=== PATIENT | male | born 1975 | race African-American/Black ===

== ENCOUNTER 2018-04-08 14:24 | Emergency (ER) | payer BC, OTHER ==
--- NOTE | 2018-04-08 14:39 | PDOC ---
Rapid Medical Evaluation Chief Complaint: Pain, Acute Time Seen by Provider: 04/08/18 14:31 Medical Evaluation: Allergies Allergy/AdvReac Type Severity Reaction Status Date / Time No Known Allergies Allergy Verified 09/30/16 19:34 Vital Signs Temp Pulse Resp BP Pulse Ox 97.9 F 97 H 18 147/95 99 04/08/18 14:31 04/08/18 14:31 04/08/18 14:31 04/08/18 14:31 04/08/18 14:31 04/08/18 14:37 I have performed a brief in-person evaluation of this patient. The patient presents with a chief complaint of: L knee injury today, unable to bear weight Pertinent physical exam findings:Pain w/ ROM, no swelling or deformity I have ordered the following:knee xray The patient will proceed to the ED for further evaluation. Discharge Disposition - Diagnosis Knee sprain Qualifiers: Encounter type: initial encounter Involved ligament of knee: unspecified ligament Laterality: left Qualified Code(s): S83.92XA - Sprain of unspecified site of left knee, initial encounter - Referrals - Patient Instructions - Post Discharge Activity
[2018-04-08 14:42] VITALS: BP 147/95; PULSE 97; TEMP 97.9; BMI 28.0
[2018-04-08] MEDS ORDERED: IBUPROFEN 400 MG TABLET (FP) PO ONE ×2 (14:42→14:53)
--- NOTE | 2018-04-08 14:44 | PDOC ---
History of Present Illness - General Chief Complaint: Pain, Acute Stated Complaint: LEG PAIN Time Seen by Provider: 04/08/18 14:31 History Source: Patient Exam Limitations: No Limitations - History of Present Illness Initial Comments: 04/08/18 14:43 42 yr male tripped and fell this AM landed on left knee. pain to left knee Past History - Past Medical History Allergies/Adverse Reactions: Allergies Allergy/AdvReac Type Severity Reaction Status Date / Time No Known Allergies Allergy Verified 09/30/16 19:34 Home Medications: Ambulatory Orders NK [No Known Home Medication] 04/08/18 HTN: Yes - Suicide/Smoking/Psychosocial Hx Smoking History: Never smoked Hx Alcohol Use: No Drug/Substance Use Hx: No Review of Systems - Review of Systems Able to Perform ROS?: Yes Is the patient limited Guatemalan proficient: No Constitutional: No: Symptoms Reported HEENTM: No: Symptoms Reported Respiratory: No: Symptoms reported Cardiac (ROS): No: Symptoms Reported ABD/GI: No: Symptoms Reported : No: Symptoms Reported Musculoskeletal: Yes: Symptoms Reported *Physical Exam - Vital Signs Last Vital Signs Temp Pulse Resp BP Pulse Ox 97.9 F 97 H 18 147/95 99 04/08/18 14:31 04/08/18 14:31 04/08/18 14:31 04/08/18 14:31 04/08/18 14:31 - Physical Exam General Appearance: Yes: Nourished, Appropriately Dressed HEENT: positive: EOMI, SULAIMAN Extremity: positive: Normal Capillary Refill, Tender (left knee swelling to the left lateral knee noted ) Integumentary: positive: Normal Color, Dry, Warm Neurologic: positive: 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 NML intact, Fully Oriented, Alert, Normal Mood/ Affect, Normal Response, Motor Strength 5/5 ED Treatment Course - RADIOLOGY Radiology Studies Ordered: Category Date Time Status KNEE 3 POS-LEFT [RAD] Stat Radiology 04/08/18 14:42 Ordered Medical Decision Making - Medical Decision Making 04/08/18 14:43 cc: left knee injury will get xray and motrin knee immobilizer will be placed motrin and ice pack 04/08/18 15:29 *DC/Admit/Observation/Transfer Diagnosis at time of Disposition: Knee sprain Qualifiers: Encounter type: initial encounter Involved ligament of knee: unspecified ligament Laterality: left Qualified Code(s): S83.92XA - Sprain of unspecified site of left knee, initial encounter - Discharge Dispostion Disposition: HOME Condition at time of disposition: Good - Referrals Referrals: Serafin Bautista MD [Staff Physician] - - Patient Instructions Additional Instructions: elevate and apply ice every 2 hrs for 20 minutes for the next 2 days take ibuprofen 600mg every 8 hrs for pain as needed use the knee splint while awake remove to sleep and bathe follow with the orthopedist Dr. Bautista or if symptoms worsen or persist beyond 3-4 days - Post Discharge Activity
== END 2018-04-08 16:01 | disposition home or self-care (01) ==
LOC: JERFT 14:24
DX: S83.92XA Sprain of unspecified site of left knee, initial encounter (principal); W18.39XA Other fall on same level, initial encounter; Y93.89 Activity, other specified; Y92.9 Unspecified place or not applicable
CPT/HCPCS: 73560-TC-LT-FY; 99281-25

== ENCOUNTER 2019-01-23 11:46 | Emergency (ER) | payer BC ==
[2019-01-23 11:51] VITALS: BP 138/80; PULSE 83; TEMP 98.1; BMI 28.3
--- NOTE | 2019-01-23 12:31 | PDOC ---
History of Present Illness - General Chief Complaint: Chronic pain Stated Complaint: LF KNEE PAIN Time Seen by Provider: 01/23/19 11:57 History Source: Patient Exam Limitations: No Limitations - History of Present Illness Initial Comments: 01/23/19 12:37 Patient states he sprained his knee last year with a twisting injury, was told he had (?)meniscus injury . Is in exercise or activity but feels may be with heavy dog climbing on top of his leg or extension injury which re-exacerbated his left knee swelling and pain. Denies numbness or tingling to foot, no other injury. 01/23/19 19:13 Occurred: reports: yesterday Severity: reports: mild Pain Location: reports: lower extremity Modifying Factors: worse with: cold therapy, pain medication (left knee) Associated Symptoms (Fall): denies symptoms Past History - Travel Traveled outside of the country in the last 30 days: No Close contact w/someone who was outside of country & ill: No - Past Medical History Allergies/Adverse Reactions: Allergies Allergy/AdvReac Type Severity Reaction Status Date / Time shellfish derived Allergy Verified 01/23/19 11:49 Home Medications: Ambulatory Orders Naproxen [Naprosyn -] 500 mg PO BID #30 tablet 01/23/19 HTN: Yes - Suicide/Smoking/Psychosocial Hx Smoking History: Smoker current status UNK Hx Alcohol Use: No Drug/Substance Use Hx: No Review of Systems - Review of Systems Able to Perform ROS?: Yes Is the patient limited Burmese proficient: Yes Constitutional: Yes: See HPI. No: Symptoms Reported, Malaise HEENTM: No: Symptoms Reported Respiratory: No: Symptoms reported Musculoskeletal: Yes: Symptoms Reported, See HPI, Back Pain, Joint Pain, Joint Swelling (left knee- ) All Other Systems: Reviewed and Negative *Physical Exam - Vital Signs Last Vital Signs Temp Pulse Resp BP Pulse Ox 98.1 F 83 16 138/80 99 01/23/19 11:49 01/23/19 11:49 01/23/19 11:49 01/23/19 11:49 01/23/19 11:49 - Physical Exam General Appearance: Yes: Nourished, Appropriately Dressed, Apparent Distress, Mild Distress HEENT: positive: SULAIMAN, Normal ENT Inspection, TMs Normal, Pharynx Normal Neck: positive: Supple. negative: Tender Musculoskeletal: positive: Normal Inspection. negative: Vertebral Tenderness Extremity: positive: Tender, Swelling. negative: Normal Inspection (swollen left knee capsule, patella is mobile but has ballottement superior knee. Has no medial or lateral collateral ligament tenderness, unable to elicit Webster test for anterior drawer test due to patient guarding. 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 NML intact, Fully Oriented, Alert, Normal Mood/ Affect, Normal Response, Motor Strength 5/5 Progress Note - Progress Note Progress Note: Left knee strain, will refer back to orthopedist for further evaluation testing and treatment *DC/Admit/Observation/Transfer Diagnosis at time of Disposition: Left knee sprain Qualifiers: Encounter type: initial encounter Involved ligament of knee: unspecified ligament Qualified Code(s): S83.92XA - Sprain of unspecified site of left knee, initial encounter - Discharge Dispostion Disposition: HOME Condition at time of disposition: Stable Decision to Admit order: No - Prescriptions Prescriptions: Naproxen [Naprosyn -] 500 mg PO BID #30 tablet - Referrals Referrals: Luisana De La Rosa [Primary Care Provider] - Corbin Salamanca DO [Staff Physician] - - Patient Instructions Printed Discharge Instructions: DI for Knee Sprain Additional Instructions: Rest, ice to area on and off for 15 minutes 4-6 times a day Avoid heavy lifting or exercise until pain and swelling is resolved or until further directed Keep area highly elevated to reduce swelling Use splints/Roverto wrap as directed Followup with orthopedist in one to 2 days if not improving, if significantly improved may wait one week for followup with orthopedist May use ibuprofen every 6 hours as needed for pain - Post Discharge Activity Forms/Work/School Notes: Back to Work
== END 2019-01-23 12:45 | disposition home or self-care (01) ==
LOC: JERFT 11:46
DX: S83.8X2A Sprain of other specified parts of left knee, initial encounter (principal); X58.XXXA Exposure to other specified factors, initial encounter; Y93.89 Activity, other specified; Y92.038 Other place in apartment as the place of occurrence of the external cause; Y99.8 Other external cause status
CPT/HCPCS: 99281-25

== ENCOUNTER 2023-10-25 11:52 | Emergency (ER) | payer BC, OTHER ==
[2023-10-25 11:59] VITALS: BP 121/89; PULSE 85; RESP 18; TEMP 98.8; BMI 30.5
[2023-10-25] MEDS ORDERED: SODIUM CHLORIDE 0.9% 500 ML INFUS.BAG IV ONE (14:00)
[2023-10-25 14:38] LABS: BASO % 1.2 % (0-2.0); EOS % 1.1 % (0-4.5); HEMATOCRIT 47.3 % (35.4-49); HEMOGLOBIN 15.8 GM/dL (11.7-16.9); LYMPH % 39.1 % (8-40); MCH 28.8 pg (25.7-33.7); MCHC 33.5 g/dl (32.0-35.9); MEAN CELL VOLUME 86.1 fl (80-96); MEAN PLT VOLUME 9.3 fl (7.5-11.1); MONO % 13.9 % (3.8-10.2); NEUT % 44.7 % (42.8-82.8); PLATELET COUNT 172 10^3/uL (134-434); RBC 5.49 M/mm3 (4.00-5.60); RDW 13.4 % (11.9-15.9); WHITE BLOOD COUNT 3.7 K/mm3 (4.0-10.0)
[2023-10-25 15:04] LABS: CHLORIDE 101 mmol/L (98-107); SODIUM 133 mmol/L (136-145)
[2023-10-25 15:06] LABS: ALBUMIN 3.5 g/dl (3.4-5.0); BLOOD UREA NITROGEN 13.9 mg/dL (7-18); CO2 30 mmol/L (21-32); GLUCOSE,RANDOM 88 mg/dL (74-106); MAGNESIUM 2.4 mg/dL (1.8-2.4)
[2023-10-25 15:09] LABS: CREATININE 1.2 mg/dL (0.55-1.3)
[2023-10-25 15:11] LABS: TOT PROT 8.9 g/dl (6.4-8.2)
[2023-10-25 15:12] LABS: ALK PHOS 65 U/L (45-117)
[2023-10-25 15:35] LABS: ANION GAP 1 mmol/L (4-13); POTASSIUM 9.8 mmol/L (3.5-5.1); SGOT/AST 135 U/L (15-37); SGPT/ALT 48 U/L (13-61)
[2023-10-25 16:50] LABS: BILIRUBIN,TOTAL < 0.1 mg/dL (0.2-1)
== END 2023-10-25 16:00 | disposition home or self-care (01) ==
LOC: JER 11:52
DX: R42 Dizziness and giddiness (principal); R05.9 Cough, unspecified; R07.89 Other chest pain; R11.0 Nausea; J10.1 Influenza due to other identified influenza virus with other respiratory manifestations; Z20.822 Contact with and (suspected) exposure to COVID-19
CPT/HCPCS: 0241U-QW; 36415; 71046-TC-FY; 80053; 83735; 84484; 85025; 93005; 93010; 99285-25